=== PATIENT | male | born 1935 | race Caucasian/White ===

== ENCOUNTER 2016-06-06 20:31 | Emergency (ER) | payer OTHER ==
[~2016-06-06 20:31] MED LIST: ADVAIR INH; AMARYL2 MG PO; ASPIR 8181 MG PO; COUMADIN4 MG PO; COUMADIN5 MG PO; CRESTOR20 MG PO; CYANOCOBAL1000 MCG/M INJ; FLOMAX0.4 MG PO; GLUCOPHAGE1000 MG PO; NEURONTIN300 MG PO; POLYETHYLENE GL17 GM PO; PROSCAR5 MG PO; PROTONIX40 MG PO; SKELAXIN800 MG PO; SPIRIVA18 MCG INH; TOPROL XL200 MG PO; TYLENOL325 MG PO; VALIUM10 MG PO; VESICARE5 MG PO; ZESTRIL5 MG PO; ZOLOFT50 MG PO
== END 2016-06-07 00:40 | disposition home or self-care (01) ==
LOC: ER 20:31
DX: J45.909 Unspecified asthma, uncomplicated (principal); I11.0 Hypertensive heart disease with heart failure; I50.9 Heart failure, unspecified; K21.9 Gastro-esophageal reflux disease without esophagitis; E11.9 Type 2 diabetes mellitus without complications; E87.6 Hypokalemia; E78.5 Hyperlipidemia, unspecified; J44.9 Chronic obstructive pulmonary disease, unspecified; J18.9 Pneumonia, unspecified organism; Z86.73 Personal history of transient ischemic attack (TIA), and cerebral infarction without residual deficits; Z79.01 Long term (current) use of anticoagulants; Z79.84 Long term (current) use of oral hypoglycemic drugs; Z79.899 Other long term (current) drug therapy
CPT/HCPCS: 36415